=== PATIENT | female | born 1965 | race Caucasian/White ===

== ENCOUNTER → 2016-06-18 | Outpatient (CLI) | payer OTHER ==
--- NOTE | 2016-06-21 15:01 | MR ---
EXAM DATE: 06/18/16 PATIENT'S AGE: 50 Patient: HEMAL GALLARDO Facility: [place], [place] Site . Site : 1965 Study: MRI Spine Lumbar [id number]/10/2017 3:01:37 PM Ordering Physician: Chloe Worrell Final Report: Indication: 50-year-old female. Chronic back pain. Radiculopathy. Technique: T1-T2 and STIR sagittal images with multilevel T1 and T2 axial acquisitions. Findings: Conus is normal. T11-12: Minor anterior marginal spurring. No central or foraminal narrowing. T12-L1 through L4-5: No central or foraminal narrowing. L5-S1: Disc bulge and mild marginal spurring. Wtzpyeha-pa-wosfru left foraminal narrowing by disc osteophyte complex. Correlation for left L5 symptoms is suggested. Central canal and right neural foramen are adequately patent. Visualized portions of the sacrum are normal. Impression: 1. Moderate to marked left L5-S1 foraminal stenosis by disc osteophyte complex. Correlation for possible left L5 symptoms is suggested. Dictated by Jacob Reardon MD @ Jun 18 2016 5:02PM (Electronic Signature) Report Signed by Proxy and Original Signed Document filed in the Medical Record. MTDD
--- NOTE | 2016-06-21 15:39 | MR ---
EXAM DATE: 06/18/16 PATIENT'S AGE: 50 Patient: HEMAL GALLARDO Facility: [place], [place] Site . Site : 1965 Study: MRI Spine Cervical [id number]/10/2017 3:26:21 PM Ordering Physician: Chloe Worrell Final Report: INDICATION: 50-year-old female. Neck pain with left shoulder radiation. Bilateral arm weakness. Cervical fusion. Technique: T1-T2 and STIR sagittal images with multilevel T2 axial acquisitions. Comparison: MRI December 16, 2015. Findings: There is a mild cervical kyphosis. Prevertebral tissues normal. Cerebellar tonsils normally situated. There is no pathologic signal within the spinal cord. C2-3 and C3-4: Normal. C4-5: Interbody fusion with anterior fixation hardware. Central canal and foramina adequately decompressed. C5-6: Disc bulge, spurring and grade 1 retrolisthesis. Spondylitic protrusion indents the spinal cord. Foramina adequately patent. C6-7 and C7-T1: Annular bulge without significant central or foraminal narrowing. T1-2, T2-3 and T3-4: Normal. Impression: 1. No change. 2. Mild cervical kyphosis. 3. Interbody fusion with anterior fixation hardware at C4-5. Central canal and foramina adequately decompressed. 4. Spondylosis and mild retrolisthesis at C5-6 that indent the spinal cord without impingement. 5. Minor spondylosis C6-7 and C7-T1. Dictated by Jacob Reardon MD @ Jun 18 2016 5:07PM (Electronic Signature) Report Signed by Proxy and Original Signed Document filed in the Medical Record. MTDD
== END ==
LOC: MW.MRI 14:20
PROVIDERS: ATTEND Anesthesiology
DX: M50.10 Cervical disc disorder with radiculopathy, unspecified cervical region (principal); M54.5 Low back pain; G89.29 Other chronic pain
CPT/HCPCS: 72141; 72141-26; 72148; 72148-26

== ENCOUNTER → 2016-07-28 | Outpatient (CLI) | payer OTHER | END | disposition home or self-care (01) | LOC: MW.CHPM 09:24 | PROVIDERS: ATTEND Anesthesiology | DX: Z51.81 Encounter for therapeutic drug level monitoring (principal); Z79.891 Long term (current) use of opiate analgesic | CPT/HCPCS: 80305 ==

== ENCOUNTER 2016-09-02 12:02 | Day surgery (SDC) | payer OTHER ==
[~2016-09-02 12:02] MED LIST: Betamethasone Acetate/Betamethasone Sod Phosphate 30 MG/5 ML MDV ONE; Iopamidol 408 MG/ML 50 ML SDV ONE; Lidocaine 2% 5 ML SDV ONE; Ropivacaine 0.5% 5 MG/ML 30 ML SDV ONE
--- NOTE | 2016-09-02 21:28 | OR ---
SURGEON: Anaid Corona D.O. DATE OF PROCEDURE: 09/02/2016 OR STAFF PRESENT: 1. Shakir Farrell RN. 2. Makenzie Hills RN. 3. RT Letty. WOUND CLASSIFICATION: 1. PREOPERATIVE DIAGNOSES: 1. Lumbar degenerative disk disease. 2. Lumbar radiculopathy. POSTOPERATIVE DIAGNOSES: 1. Lumbar degenerative disk disease. 2. Lumbar radiculopathy. PROCEDURES PERFORMED: 1. Lumbar interlaminar epidural steroid injection at L4-L5. 2. Fluoroscopic guidance for needle placement. 3. Local with oral Valium for sedation. SCREENING QUESTIONS: The patient answered "no" to all of the following questions: 1. Are you allergic to latex? 2. Do you have a bleeding disorder? 3. Do you have any current local or systemic infections? 4. Are you taking any anti-inflammatories or blood thinners? 5. Do you have any joint replacements, heart valve replacements, or a pacemaker? DESCRIPTION OF PROCEDURE: The patient had the procedure thoroughly explained including all possible risks, benefits and alternatives. Consent was signed in my clinic indicating understanding and willingness to proceed. The patient presented to [facility] and was escorted to the dressing room to disrobe and change into a hospital gown. Preoperative vital signs were taken and stable. The patient reported that Valium was taken prior to the procedure. The patient was brought back to the procedure room and placed in the prone position on the procedure room table. A pillow was placed under the hips in order to flatten the lumbar lordosis. The back was prepped with ChloraPrep and sterilely draped. All personnel in the operating room were dressed in appropriate attire including surgical scrubs, head and shoe covers. This was to ensure sterility while in the treatment room. During the time fluoroscopy was in use, all personnel in the operating room wore lead perez with thyroid collars. Sterile technique was used throughout the procedure. The patient was awake and conversant throughout the procedure. There was no evidence of infection at the site of needle insertion. Skeletal landmarks were identified under fluoroscopy for the lumbar epidural. Skin was anesthetized with 2% lidocaine with a sterile 27-gauge 1.5 inch needle. Then a 20-gauge Tuohy epidural needle was placed in the epidural space with loss of resistance technique under fluoroscopic guidance. No heme, cerebrospinal fluid, or paresthesias were noted. Isovue-200 contrast dye was injected in 0.2 cubic centimeter increments and seen to outline the epidural space in both AP and lateral views. There was no intravascular flow pattern observed under live fluoroscopy. Then 12 milligrams of Celestone was slowly injected after negative aspiration. The patient tolerated the procedure well. Vital signs were stable during and after the procedure. The staff escorted the patient to the recovery area and the patient was released in stable condition after a brief stay in the recovery room monitored by the nurse. The patient was given both oral and written discharge and follow up instructions with recommendation to follow up given for 2-3 weeks. The patient voiced understanding including understanding of those signs and symptoms that would require emergency care. The patient knows how to contact the office if there are any additional problems or questions in the meantime. PREOPERATIVE PAIN: 7/10. POSTOPERATIVE PAIN: 4/10. PLAN: Follow up in the Pain Clinic in one month with pain dairy. OSCAR / TAMMIE /[id number]
== END 2016-09-02 13:37 | disposition home or self-care (01) ==
LOC: MW.SDS 12:02
PROVIDERS: ATTEND Anesthesiology
PROC: 3E0S33Z Introduction of Anti-inflammatory into Epidural Space, Percutaneous Approach (ICD-10-PCS; principal; 2016-09-02)
DX: M51.16 Intervertebral disc disorders with radiculopathy, lumbar region (principal); M48.02 Spinal stenosis, cervical region; M50.10 Cervical disc disorder with radiculopathy, unspecified cervical region; G89.4 Chronic pain syndrome; G57.10 Meralgia paresthetica, unspecified lower limb; G43.909 Migraine, unspecified, not intractable, without status migrainosus; F17.210 Nicotine dependence, cigarettes, uncomplicated; Z98.1 Arthrodesis status; Z98.890 Other specified postprocedural states; Z79.899 Other long term (current) drug therapy; Z79.891 Long term (current) use of opiate analgesic
CPT/HCPCS: 62323; J0702; J2795; Q9966

== ENCOUNTER 2019-10-23 16:51 | Emergency (ER) | payer SELFPAY ==
[2019-10-23] MEDS ORDERED: LORazepam 2 MG/ML SDV IVPUSH ONE ×2 (17:13→17:42)
--- NOTE | 2019-10-23 17:25 | EDM.PDOC ---
ED HPI GENERAL MEDICAL PROBLEM - General Chief Complaint: Allergic Reaction Stated Complaint: ALLERGIC REACTION TO MEDICATION Time Seen by Provider: 10/23/19 17:05 Source of Information: Reports: Patient History Limitations: Reports: No Limitations - History of Present Illness INITIAL COMMENTS - FREE TEXT/NARRATIVE: Presents reporting 5-day history of "an allergic reaction to my Cymbalta". She continued to take her Cymbalta--even this morning--which was prescribed for anxiety/panic/depression by her primary provider Dr. Yun. Today, her symptoms include a choking sensation in her throat, dizziness, crying, tingling in the hands, a sensation of shortness of breath. The patient reports "a lot of stress in my life". She describes raising her two grandchildren ages 2 and 4 with no break, two brothers and her dad dying within the last 6 months and chronic pain due to postsurgical effects. No vomiting, chest pain, fevers, coughing.. - Related Data Allergies Allergy/AdvReac Type Severity Reaction Status Date / Time No Known Allergies Allergy Verified 10/23/19 16:52 Home Meds: Home Meds Cyclobenzaprine [Flexeril] 1 - 2 tab PO ASDIRECTED PRN 03/27/15 [History] ALPRAZolam [Alprazolam] 0.25 mg PO DAILY PRN #20 tablet 10/23/19 [Rx] DULoxetine [Cymbalta] 120 mg PO TID 10/23/19 [History] Gabapentin [Neurontin] 300 mg PO TID 10/23/19 [History] Past Medical History HEENT History: Reports: None Cardiovascular History: Reports: None Respiratory History: Reports: None Other Respiratory History: REports 25 yr history smoking current use 1/2 pack per day Gastrointestinal History: Reports: None Genitourinary History: Reports: None COURSE DEVELOPER History: Reports: Other (See Below) Other COURSE DEVELOPER History: Tubal, 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 Neurological History: Reports: None Other Neuro History: hx: Headaches Psychiatric History: Reports: None Endocrine/Metabolic History: Reports: None Hematologic History: Reports: None Immunologic History: Reports: None Oncologic (Cancer) History: Reports: None Dermatologic History: Reports: None - Infectious Disease History Infectious Disease History: Reports: None - Past Surgical History Head Surgeries/Procedures: Reports: None HEENT Surgical History: Reports: Other (See Below) Cardiovascular Surgical History: Reports: None Respiratory Surgical History: Reports: None GI Surgical History: Reports: Other (See Below) Female Surgical History: Reports: Tubal Ligation Endocrine Surgical History: Reports: None Neurological Surgical History: Reports: None Musculoskeletal Surgical History: Reports: None Oncologic Surgical History: Reports: None Dermatological Surgical History: Reports: None Social & Family History - Family History Family Medical History: Noncontributory - Tobacco Use Smoking Status *Q: Current Every Day Smoker Years of Tobacco use: 20 Packs/Tins Daily: 0.7 - Caffeine Use Caffeine Use: Reports: Coffee - Recreational Drug Use Recreational Drug Use: No ED ROS ALLERGIC REACTION - Review of Systems Review Of Systems: Comprehensive ROS is negative, except as noted in HPI. ED EXAM GENERAL NO PERIP PULSE - Physical Exam Exam: See Below Exam Limited By: No Limitations General Appearance: Alert, Moderate Distress (due to anxiety) Ears: Normal External Exam Nose: Normal Inspection Throat/Mouth: Normal Inspection Head: Atraumatic, Normocephalic Neck: Normal Inspection Respiratory/Chest: No Respiratory Distress, Lungs Clear, Normal Breath Sounds Cardiovascular: Normal Peripheral Pulses, Regular Rate, Rhythm, No Murmur Back Exam: Normal Inspection Extremities: Normal Inspection Neurological: Alert, Oriented Psychiatric: Anxious, Tearful Skin Exam: Warm, Dry, Intact, Normal Color, No Rash Lymphatic: No Adenopathy Course - Vital Signs Last Recorded V/S: Last Vital Signs Temp 35.8 C L 10/23/19 16:53 Pulse 82 10/23/19 16:53 Resp 18 10/23/19 16:53 BP 181/98 H 10/23/19 16:53 Pulse Ox 100 10/23/19 16:53 - Orders/Labs/Meds Meds: Medications Discontinued Medications Generic Name Dose Route Start Last Admin Trade Name Freq PRN Reason Stop Dose Admin Lorazepam 0.5 mg 10/23/19 17:13 10/23/19 17:21 Ativan IVPUSH 10/23/19 17:14 0.5 mg ONETIME ONE Administration Lorazepam 0.5 mg 10/23/19 17:42 10/23/19 17:49 Ativan IVPUSH 10/23/19 17:43 0.5 mg ONETIME ONE Administration - Re-Assessments/Exams Free Text/Narrative Re-Assessment/Exam: 10/23/19 18:08 Given resources for talk therapy. Free Text/Narrative Re-Assessment/Exam: 10/23/19 18:58 States that she feels 100% better, her symptoms have resolved. She again reiterates all the stress she has been under. Departure - Departure Time of Disposition: 18:59 Disposition: Home, Self-Care 01 Condition: Good Clinical Impression: Panic attack - Discharge Information Referrals: Yudelka Yun DO [Primary Care Provider] - Jessica Cotto NP [Emergency Midlevel Provider] - Additional Instructions: The following information is given to patients seen in the emergency department who are being discharged to home. This information is to outline your options for follow-up care. We provide all patients seen in our emergency department with a follow-up referral. The need for follow-up, as well as the timing and circumstances, are variable depending upon the specifics of your emergency department visit. If you don't have a primary care physician on staff, we will provide you with a referral. We always advise you to contact your personal physician following an emergency department visit to inform them of the circumstance of the visit and for follow-up with them and/or the need for any referrals to a consulting specialist. The emergency department will also refer you to a specialist when appropriate. This referral assures that you have the opportunity for follow-up care with a s pecialist. All of these measure are taken in an effort to provide you with optimal care, which includes your follow-up. Under all circumstances we always encourage you to contact your private physici an who remains a resource for coordinating your care. When calling for follow-up care, please make the office aware that this follow-up is from your recent emergency room visit. If for any reason you are refused follow-up, please contact the [facility] Emergency Department at and asked to speak to the emergency department charge nurse. 1. Alprazolam (Xanax) 0.25 milligrams tablets. May take 1 at first sign of panic and repeat x2 as needed. Driving or operating machinery with this medication 2. Follow up with your primary provider or see LAMAR Medina in the clinic for further evaluation, management of your anxiety and panic and counseling referral. 3. A list of resources has been provided for you, please access [facility] if you need someone to talk to in the interim. Sepsis Event Note (ED) - Evaluation Sepsis Screening Result: No Definite Risk - Focused Exam Vital Signs: Vital Signs Temp Pulse Resp BP Pulse Ox 10/23/19 16:53 35.8 C L 82 18 181/98 H 100
[2019-10-23 19:34] VITALS: BP 142/93; PULSE 84
== END 2019-10-23 19:34 | disposition home or self-care (01) ==
LOC: MW.ED 16:51
DX: F41.0 Panic disorder [episodic paroxysmal anxiety] (principal); F17.210 Nicotine dependence, cigarettes, uncomplicated; Z79.899 Other long term (current) drug therapy
CPT/HCPCS: 96374; 99283; J2060